=== PATIENT | male | born 1990 | race Caucasian/White ===

== ENCOUNTER 2021-02-12 02:41 | Emergency (ER) | payer MEDICAID, SELFPAY ==
[2021-02-12] VITALS (7 sets, daily range): BP systolic 116–156; BP diastolic 76–91; PULSE 86–142; RESP 12–26; TEMP 36.8; O2SAT 95–98; BMI 36.7
[2021-02-12] MEDS: Ziprasidone IM 20 MG/ML VIAL IM (03:00)
--- NOTE | 2021-02-12 03:09 | EX.ED.VIS.PS ---
HPI HPI - Psych History of Present Illness Chief Complaint: Mental Health Informant: patient and police/patient service rep Narrative Narrative: Police reportedly called to local hotel where patient was causing a disturbance. Patient reportedly was making statements that he was going to blow up the hotel and kill people. He also made several statements he want to kill himself. He reports being upset over the loss of a daughter. On arrival to the emergency room patient combative and spitting. He was given 20 mg of Geodon IM. On repeat evaluation he is much more calm and conversant. He states he does not remember what happened at the hotel and feels like he blacked out. He does admit to drinking alcohol tonight. 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 He denies any drug use. [facility] Medical History (Updated 02/12/21 @ 07:[address] Ana Abreu MD) Depression alcohol syndrome HIV (human immunodeficiency virus infection) Home Medications darunavir ethanolate 800 mg PO DAILY 02/12/21 [History Last Taken Unknown] fyaomtp-eyd-cnbpt-tenof alafen 1 tab PO DAILY 02/12/21 [History Last Taken Unknown] fluoxetine [Prozac] 10 mg PO DAILY 02/12/21 [History Last Taken Unknown] Allergy/AdvReac Type Severity Reaction Status Date / Time cephalexin [From Keflex] Allergy Vomiting Verified 02/12/21 03:03 Surgical History no surgical history Social History (Updated 02/12/21 @ 03:[address] Ana Abreu MD) Smoking Status: Current every day smoker tobacco type: cigarettes substance use type: former substance user ROS ROS ED Constitutional Constitutional ED: Denies chills or fever(s) Eyes Eyes: Denies change in vision ENT ENT ED: Denies rhinorrhea Cardiovascular Cardiovascular: Denies chest pain or palpitations Respiratory/Chest Respiratory/Chest: Denies dyspnea Gastrointestinal Gastrointestinal: Denies abdominal pain, nausea or vomiting Musculoskeletal Musculoskeletal: Denies back pain or neck pain Integumentary Denies rash Neurologic Neurologic: Denies paresthesias or weakness Psychiatric Psychiatric: Reports anxiety, depression and suicidal thoughts Allergic/Immunologic Allergic/Immunologic ED: Denies urticaria EXAM Physical Exam Const Vital Signs: 02/12/21 02:43 02/12/21 04:44 02/12/21 06:29 Temperature 98.2 F Temperature Source Temporal Pulse Rate 142 H Respiratory Rate 26 H 16 16 Blood Pressure 156/91 H Blood Pressure Mean 112 Pulse Ox 95 Oxygen Delivery Method Room Air Positive well nourished, well developed and unkempt General Appearance ED: unkempt and well developed Eyes EOMs intact bilaterally Neck supple Resp normal respiratory effort and clear to auscultation bilaterally Cardio Rate: tachycardic GI non-tender Palpation: soft Extremity normal to inspection Neuro oriented x3 Neuro Narrative: No focal neurologic deficits. Sensorium / Orientation: alert Psych Appearance: unkempt Attitude: agitated and aggressive MDM MDM MDM Narrative Medical decision making narrative: Patient placed in four-point restraints on arrival to the emergency room and given 20 mg of IM Geodon. Lab work for medical clearance/psychiatric evaluation obtained. Lab Data Attestation: I reviewed the patient's lab results. Labs: Laboratory Results - last 24 hr 02/12/21 02/12/21 02/12/21 03:05 03:05 03:05 WBC 5.3 RBC 5.09 Hgb 14.3 Hct 42.3 MCV 83.1 MCH 28.1 MCHC 33.8 RDW Std Deviation 35.1 RDW Coeff of Lilly 11.6 Plt Count 280 MPV 9.0 Immature Gran % (Auto) 0.200 Neut % (Auto) 26.4 L Lymph % (Auto) 59.1 H Vermilion % (Auto) 10.3 H Eos % (Auto) 3.0 Baso % (Auto) 1.0 Absolute Neuts (auto) 1.4 L Absolute Lymphs (auto) 3.11 Nucleated RBC % 0 Sodium 142 Potassium 3.5 Chloride 110 H Carbon Dioxide 25.0 Anion Gap 7 BUN 6 L Creatinine 0.74 Estim Creat Clear Calc 145.96 Est GFR (MDRD) Af Amer 159 Est GFR (MDRD) Non-Af 131 BUN/Creatinine Ratio 8.1 L Glucose 97 Calcium 8.6 Salicylates < 1.7 L Acetaminophen < 2.0 L Ethyl Alcohol 02/12/21 02/12/21 03:05 05:00 WBC RBC Hgb Hct MCV MCH MCHC RDW Std Deviation RDW Coeff of Lilly Plt Count MPV Immature Gran % (Auto) Neut % (Auto) Lymph % (Auto) Vermilion % (Auto) Eos % (Auto) Baso % (Auto) Absolute Neuts (auto) Absolute Lymphs (auto) Nucleated RBC % Sodium Potassium Chloride Carbon Dioxide Anion Gap BUN Creatinine Estim Creat Clear Calc Est GFR (MDRD) Af Amer Est GFR (MDRD) Non-Af BUN/Creatinine Ratio Glucose Calcium Salicylates Acetaminophen Ethyl Alcohol 127.0 90.0 Treatment and Re-Evaluation Comments:: Patient has been able to be taken out of restraints. Initial alcohol level was 127. Repeat is 90. Crisis has evaluated the patient. They will work on hospital placement. Discharge Plan Triage Chief Complaint: Mental Health ED Provider: Ana Abreu Dx/Rx/DC Orders Clinical Impression: Suicidal ideation Prescriptions: No Action fluoxetine [Prozac] 10 mg Capsule 10 mg PO DAILY RF: 0 darunavir ethanolate 800 mg Tablet 800 mg PO DAILY RF: 0 nepqmwc-htx-otwnk-tenof alafen [id number] mg Tablet 1 tab PO DAILY RF: 0 Primary Care Provider: Care Physician,No Primary Referrals: Care Physician,No Primary [Primary Care Provider] - Disposition Disposition: Psychiatric Hospital or Unit
[2021-02-12 03:14] LABS: Absolute Lymphocyte Count 3.11 X10^3/uL (0.83-4.51); Absolute Neutrophil Count 1.4 X10^3/uL (2.0-7.7); Basophil# 0.05 X10^3/uL; Eosinophil# 0.16 X10^3/uL; Hematocrit 42.3 % (40-54); Hemoglobin 14.3 g/dL (13.0-16.5); Lymphocyte # 3.11 X10^3/ul (0.83-4.51); Lymphocyte % 59.1 % (19-41); Mean Corp Hgb Conc 33.8 g/dL (32-36); Mean Corpuscular Hgb 28.1 pg (27.0-32.0); Mean Corpuscular Volume 83.1 fL (80-94); Monocyte# 0.54 X10^3/uL; Monocyte% 10.3 % (0-10); NRBC Flagged by Analyzer 0 % (0-5); Neutrophil # 1.39 X10^3/uL (2.7-7.7); Neutrophil % 26.4 % (47-70); Platelet Count 280 K/mm3 (150-450); RBC Distribution Width CV 11.6 % (11.6-14.6); RBC Distribution Width SD 35.1 fl (35.1-43.9); Red Blood Count 5.09 M/mm3 (4.6-6.2); White Blood Count 5.3 K/mm3 (4.4-11.0)
[2021-02-12 03:31] LABS: Anion Gap 7 (5-15); BUN 6 mg/dL (7-18); BUN/Creat Ratio 8.1 RATIO (10-20); Calcium,Total 8.6 mg/dL (8.5-10.1); Chloride 110 mmol/L (98-107); Creatinine, Serum 0.74 mg/dL (0.70-1.30); EST Glomerular Filtration Rate 131 mL/min (>60); Est Glom Filt Rate - Afr Amer 159 mL/min (>60); Estimated Creatinine Clearance 145.96 ml/min; Glucose 97 mg/dL (74-106); Potassium 3.5 mmol/L (3.5-5.1); Sodium Level 142 mmol/L (136-145)
[2021-02-12 04:14] LABS: Acetaminophen (Tylenol) Level < 2.0 ug/mL (10.0-30.0); Salicylate < 1.7 mg/dL (2.8-20.0)
--- NOTE | 2021-02-12 05:48 | ED.RN ---
CALLED CRISIS AND FAXED PAPERWORK OVER
[2021-02-12 09:32] LABS: Amphetamine Urine VISTA NEGATIVE (<1000 ng/mL); Barbiturate Urine VISTA NEGATIVE (< 200 ng/mL); Benzodiazepine Urine VISTA NEGATIVE (< 200 ng/mL); Cocaine Urine VISTA NEGATIVE (< 300 ng/mL); Ecstacy Urine VISTA NEGATIVE (< 500 ng/mL); Methadone Urine VISTA NEGATIVE (< 300 ng/mL); PCP Urine VISTA NEGATIVE (< 25 ng/mL); THC Urine VISTA NEGATIVE (< 50 ng/mL); Vista UDS pH Range 5
== END 2021-02-12 12:29 ==
PROVIDERS: Emergency Provider Emergency Medicine
DX: R45.851 Suicidal ideations (principal); F17.210 Nicotine dependence, cigarettes, uncomplicated; Z21 Asymptomatic human immunodeficiency virus [HIV] infection status
CPT/HCPCS: 80048; 80307; 80329; 82077; 85025; 87426; 96372; 99285; G0480